=== PATIENT | male | born 1985 | race Caucasian/White ===

== ENCOUNTER → 2022-02-10 12:47 | Outpatient (BNVA) | payer SELFPAY | PROVIDERS: PCP Nurse Practitioner; Visit Provider Nurse Practitioner | DX: R07.89 Other chest pain (principal); U07.1 COVID-19 | CPT/HCPCS: 87400; 87426 ==

== ENCOUNTER → 2022-04-27 13:19 | Outpatient (BNVA) | payer OTHER, SELFPAY | PROVIDERS: PCP Nurse Practitioner; Visit Provider Nurse Practitioner | DX: R52 Pain, unspecified (principal) | CPT/HCPCS: 87426 ==